=== PATIENT | female | born 1955 | race African-American/Black ===

== ENCOUNTER 2017-09-19 18:53 | Inpatient (IN) ==
[2017-09-19] MEDS ORDERED: ALBUTEROL/IPRATROPIUM 3 ML NEB RESP TX STA (19:21)
[2017-09-19] MEDS ORDERED: methylPREDNISolone SOD SUC 125 MG/2 ML VIAL IV STA (19:21)
[2017-09-19] MEDS ORDERED: LEVOFLOXACIN INJ 750 MG in PREMIX 1 EACH IV STA (19:21)
[2017-09-19] MEDS ORDERED: ONDANSETRON 4 MG/2 ML VIAL IV STA (19:21)
[2017-09-19] MEDS ORDERED: KETOROLAC 30 MG/1 ML VIAL IV STA (19:24)
[2017-09-19] MEDS ORDERED: methylPREDNISolone SOD SUC 125 MG/2 ML VIAL ONE (19:57)
[2017-09-19] MEDS ORDERED: KETOROLAC 30 MG/1 ML VIAL ONE (19:57)
[2017-09-19] MEDS ORDERED: LEVOFLOXACIN INJ 150 ML IV ONE (19:57)
[2017-09-19] MEDS ORDERED: ONDANSETRON 4 MG/2 ML VIAL ONE (19:57)
[2017-09-19 20:06] LABS: Basophils % 0.2 % (0.0-0.8); Hematocrit 36.6 VOL% (35.7-47.0); Hemoglobin 11.9 GM/DL (12.0-16.0); Immature Granulocytes % 0.7 %; Immature Granulocytes Absolute 0.04 #; Lymphocytes # 1.3 10*3/uL (1.4-4.0); Lymphocytes % 21.9 % (21.3-54.2); Mean Corpuscular HGB Conc 32.5 GM/DL (32-36); Mean Corpuscular Hemoglobin 28 PG (27-34); Mean Corpuscular Volume 86.9 FL (87-102); Mean Platelet Volume 11.3 FL (9.6-12.0); Monocytes # 0.5 10*3/uL (0.11-0.8); Monocytes % 8.1 % (1.7-12.7); Neutrophils # 4.2 10*3/uL (1.4-7.4); Neutrophils % 69.1 % (38.7-73.9); Platelet Count 164 T/CUMM (130-400); Red Blood Count 4.21 MC/CUMM (3.8-5.5); Red Cell Distribution Width 15.1 % (9.3-17.3)
[2017-09-19] MEDS: TERBUTALINE 1 MG/1 ML VIAL SUBCUT SCH ×2 (20:10→21:08)
[2017-09-19 20:17] LABS: PT Patient Result 10.3 SECS; Partial Thromboplastin Time 29.8 SECS (0-40)
[2017-09-19 20:43] LABS: Alanine Aminotransferase 41 U/L (13-56); Albumin 3.2 G/DL (3.4-5.0); Alkaline Phosphatase 69 U/L (45-117); Aspartate Amino Transferase 61 U/L (0-37); Blood Urea Nitrogen 17 MG/DL (7-18); Calcium 8.6 MG/DL (8.5-10.1); Glucose 153 MG/DL (74-106); Osmolality,Calculated 274.1 MOS/KG (273-304); Potassium 4.7 MMOL/L (3.5-5.1); Sodium 135 MMOL/L (136-145); Total Protein 6.7 G/DL (6.4-8.3); Troponin I Only < 0.015 NG/ML (0.00-0.045)
[2017-09-19] MEDS ORDERED: SODIUM CHLORIDE 0.9% 1,000 ML IV STA (20:58)
[2017-09-19] MEDS ORDERED: TERBUTALINE 1 MG/1 ML VIAL SUBCUT ONE (21:07)
[2017-09-19] MEDS ORDERED: METFORMIN HCL PO SCH (22:15)
[2017-09-19] MEDS ORDERED: [UNRECOGNIZED DRUG - OTHER] PO SCH (22:15)
[2017-09-19] MEDS ORDERED: GLIPIZIDE PO SCH (22:15)
[2017-09-19] MEDS ORDERED: ONDANSETRON 4 MG/2 ML VIAL IV PRN (22:31)
[2017-09-19] MEDS ORDERED: DEXTROSE 50% 25 GM/50 ML VIAL IV PRN (22:31)
[2017-09-19] MEDS ORDERED: GLUCAGON 1 MG VIAL IM PRN (22:31)
[2017-09-19] MEDS ORDERED: ACETAMINOPHEN 325 MG TABLET PO PRN (22:31)
[2017-09-20] MEDS: ALBUTEROL/IPRATROPIUM 3 ML NEB RESP TX SCH ×4 (01:20→19:32)
[2017-09-20] MEDS: SODIUM CHLORIDE 0.9% 1,000 ML IV SCH ×2 (01:25→20:12)
[2017-09-20] MEDS: TERBUTALINE 1 MG/1 ML VIAL SUBCUT SCH ×2 (03:13→03:14)
[2017-09-20 04:57] LABS: Basophils % 0.3 % (0.0-0.8); Hematocrit 34.6 VOL% (35.7-47.0); Hemoglobin 11.1 GM/DL (12.0-16.0); Immature Granulocytes Absolute 0.04 #; Lymphocytes # 0.6 10*3/uL (1.4-4.0); Mean Corpuscular HGB Conc 32.1 GM/DL (32-36); Mean Corpuscular Hemoglobin 28 PG (27-34); Mean Corpuscular Volume 87.6 FL (87-102); Mean Platelet Volume 11.5 FL (9.6-12.0); Monocytes # 0.1 10*3/uL (0.11-0.8); Monocytes % 3.4 % (1.7-12.7); Neutrophils # 3.1 10*3/uL (1.4-7.4); Neutrophils % 80.3 % (38.7-73.9); Platelet Count 146 T/CUMM (130-400); Red Blood Count 3.95 MC/CUMM (3.8-5.5); Red Cell Distribution Width 15.2 % (9.3-17.3); White Blood Count 3.9 T/CUMM (4-12)
[2017-09-20 05:15] LABS: Osmolality,Calculated 284.4 MOS/KG (273-304); Potassium 4.6 MMOL/L (3.5-5.1)
[2017-09-20 05:37] LABS: Band Neutrophils 1 % (0-10); Lymphocytes 16 % (20-55); Segmented Neutrophils 80 % (50-85); Total Cells Counted 100
[2017-09-20 05:38] LABS: Platelet Estimate Normal
[2017-09-20 07:14] LABS: Allen Test Positive
[2017-09-20 07:17] LABS: ABG Base Excess -6.6 MMOL/L (-2.5-2.5); ABG HCO3 17.8 MMOL/L (20-26); ABG PCO2 32.8 MM HG (35-48); ABG PH 7.352 (7.35-7.45); ABG PO2 144.3 MM HG (80-95); ABG TCO2 18.8 MMOL/L (23-27)
[2017-09-20 07:18] LABS: ABG Oxygen Saturation 98.8 % (95-100)
[2017-09-20] MEDS ORDERED: INSULIN LISPRO 100 UNIT/ML SUBCUT SCH (07:30)
[2017-09-20 07:36] LABS: Apearance,Urine Slightly Hazy (Clear); Bilirubin,Urine Negative (Negative); Blood, Urine Negative (Negative); Glucose,Urine (UA) >=500 mg/dL (Negative); Hyaline Casts,Urine 4 /LPF (0-3); Ketones,Urine 5 mg/dL (Negative); Mucus,Urine Occasional /LPF (Occasional); Nitrite,Urine Negative (Negative); Protein,Urine Negative; Squamous Epithelial Cell,Urine Occasional /HPF (0-10); Urine Color Yellow (Yellow); Urine Specific Gravity 1.003 (1.001-1.035); Urine Urobilinogen < 2.0 EU/DL (0.2-1.0); WBC,Urine 1 /HPF (0-6)
[2017-09-20 07:58] LABS: Barbiturates Screen,Urine Negative (Negative); Benzodiazepines Screen,Urine Negative (Negative); Cannabinoid Screen,Urine Negative (Negative); Opiate Screen,Urine Negative (Negative); Phencyclidine Screen,Urine Negative (Negative)
[2017-09-20] MEDS ORDERED: MEROPENEM 1,000 MG in SODIUM CHLORIDE 0.9% 50 ML IV SCH (08:00)
[2017-09-20] MEDS ORDERED: OLMESARTAN MED PO SCH (09:00)
[2017-09-20] MEDS ORDERED: [UNRECOGNIZED DRUG - OTHER] PO SCH (09:00)
[2017-09-20] MEDS ORDERED: OSELTAMIVIR 75 MG CAPSULE PO SCH (09:00)
[2017-09-20] MEDS ORDERED: AMLODIPINE BES PO SCH (09:00)
[2017-09-20] MEDS: glyBURIDE 5 MG TABLET PO SCH ×2 (09:24→19:37)
[2017-09-20] MEDS: INSULIN LISPRO 100 UNIT/ML SUBCUT SCH ×4 (09:25→19:51)
[2017-09-20] MEDS: PANTOPRAZOLE 40 MG TABLET PO SCH (09:38)
[2017-09-20] MEDS: ENOXAPARIN 30 MG/0.3 ML SYRINGE SUBCUT SCH (09:38)
[2017-09-20] MEDS: SODIUM BICARB INJ 50 MEQ in DEXTROSE 5% NACL 0.45% 1,000 ML IV SCH ×2 (10:49→20:11)
[2017-09-20] MEDS ORDERED: SODIUM BICARB INJ 50 MEQ in SODIUM CHLORIDE 0.9% 1,000 ML IV SCH (20:30)
[2017-09-20] MEDS: PRAVASTATIN 40 MG TABLET PO SCH (20:35)
[2017-09-20] MEDS: LEVOFLOXACIN INJ 750 MG in PREMIX 1 EACH IV SCH (20:36)
[2017-09-20] MEDS: ZALEPLON 5 MG CAPSULE PO SCH (20:36)
[2017-09-21] MEDS: INSULIN LISPRO 100 UNIT/ML SUBCUT SCH ×6 (00:21→21:04)
[2017-09-21] MEDS: SODIUM BICARB INJ 50 MEQ in SODIUM CHLORIDE 0.45% 1,000 ML IV SCH ×2 (00:22→13:18)
[2017-09-21] MEDS: ALBUTEROL/IPRATROPIUM 3 ML NEB RESP TX SCH ×4 (00:26→20:26)
[2017-09-21 07:12] LABS: Alanine Aminotransferase 31 U/L (13-56); Albumin 2.5 G/DL (3.4-5.0); Alkaline Phosphatase 55 U/L (45-117); Aspartate Amino Transferase 40 U/L (0-37); Blood Urea Nitrogen 19 MG/DL (7-18); Calcium 8.1 MG/DL (8.5-10.1); Glucose 272 MG/DL (74-106); Magnesium 1.8 MG/DL (1.8-2.4); Osmolality,Calculated 286.7 MOS/KG (273-304); Sodium 138 MMOL/L (136-145); Troponin I Only < 0.015 NG/ML (0.00-0.045)
[2017-09-21 07:49] LABS: Basophils % 0.1 % (0.0-0.8); Hematocrit 33.7 VOL% (35.7-47.0); Immature Granulocytes % 1.7 %; Immature Granulocytes Absolute 0.16 #; Lymphocytes # 1.4 10*3/uL (1.4-4.0); Lymphocytes % 14.9 % (21.3-54.2); Mean Corpuscular HGB Conc 32.6 GM/DL (32-36); Mean Corpuscular Hemoglobin 28 PG (27-34); Mean Corpuscular Volume 87.1 FL (87-102); Mean Platelet Volume 11.5 FL (9.6-12.0); Monocytes # 0.7 10*3/uL (0.11-0.8); Neutrophils % 75.3 % (38.7-73.9); Platelet Count 164 T/CUMM (130-400); Red Blood Count 3.87 MC/CUMM (3.8-5.5); Red Cell Distribution Width 15.6 % (9.3-17.3); White Blood Count 9.3 T/CUMM (4-12)
[2017-09-21 07:57] LABS: PT Patient Result 10.8 SECS
[2017-09-21 08:10] LABS: Band Neutrophils 2 % (0-10); Giant Platelets Few; Hypochromasia 1+; Lymphocytes 12 % (20-55); Ovalocytes Slight; Platelet Estimate Normal; Segmented Neutrophils 74 % (50-85); Total Cells Counted 100
[2017-09-21] MEDS: glyBURIDE 5 MG TABLET PO SCH ×2 (09:41→17:46)
[2017-09-21] MEDS: PANTOPRAZOLE 40 MG TABLET PO SCH (09:41)
[2017-09-21] MEDS: ENOXAPARIN 30 MG/0.3 ML SYRINGE SUBCUT SCH (09:42)
[2017-09-21 10:17] LABS: Lactic Acid 2.8 MMOL/L (0.4-2.0)
[2017-09-21] MEDS: VANCOMYCIN INJ 1,750 MG in SODIUM CHLORIDE 0.9% 500 ML IV SCH (13:18)
[2017-09-21] MEDS: ALUMINUM/MAGNES/SIMETH MAX STR 30 ML UDCUP PO PRN ×2 (16:45→23:03)
[2017-09-21] MEDS: LEVOFLOXACIN INJ 750 MG in PREMIX 1 EACH IV SCH (21:03)
[2017-09-21] MEDS: ZALEPLON 5 MG CAPSULE PO SCH (21:03)
[2017-09-21] MEDS: PRAVASTATIN 40 MG TABLET PO SCH (21:03)
[2017-09-22] MEDS: INSULIN LISPRO 100 UNIT/ML SUBCUT SCH ×3 (00:05→09:48)
[2017-09-22] MEDS: ALBUTEROL/IPRATROPIUM 3 ML NEB RESP TX SCH ×2 (00:23→07:31)
[2017-09-22] MEDS: VANCOMYCIN INJ 1,750 MG in SODIUM CHLORIDE 0.9% 500 ML IV SCH (00:34)
[2017-09-22 06:12] LABS: Basophils % 0.1 % (0.0-0.8); Eosinophils % 0.1 % (0.00-10.9); Hematocrit 33.4 VOL% (35.7-47.0); Hemoglobin 10.9 GM/DL (12.0-16.0); Immature Granulocytes Absolute 0.22 #; Lymphocytes # 2.3 10*3/uL (1.4-4.0); Mean Corpuscular HGB Conc 32.6 GM/DL (32-36); Mean Corpuscular Hemoglobin 28 PG (27-34); Mean Platelet Volume 11.2 FL (9.6-12.0); Monocytes # 0.5 10*3/uL (0.11-0.8); Monocytes % 6.8 % (1.7-12.7); Neutrophils # 4.2 10*3/uL (1.4-7.4); Platelet Count 174 T/CUMM (130-400); Red Blood Count 3.84 MC/CUMM (3.8-5.5); Red Cell Distribution Width 15.3 % (9.3-17.3); White Blood Count 7.3 T/CUMM (4-12)
[2017-09-22 06:37] LABS: Calcium 8.2 MG/DL (8.5-10.1); Magnesium 1.7 MG/DL (1.8-2.4); Osmolality,Calculated 286.1 MOS/KG (273-304); Potassium 4.4 MMOL/L (3.5-5.1)
[2017-09-22 08:30] VITALS: BP 158/85
[2017-09-22] MEDS: SODIUM BICARB INJ 50 MEQ in SODIUM CHLORIDE 0.45% 1,000 ML IV SCH (09:20)
[2017-09-22] MEDS: glyBURIDE 5 MG TABLET PO SCH (09:46)
[2017-09-22] MEDS: ENOXAPARIN 30 MG/0.3 ML SYRINGE SUBCUT SCH (09:46)
[2017-09-22] MEDS: PANTOPRAZOLE 40 MG TABLET PO SCH (09:47)
== END 2017-09-22 11:18 | disposition home or self-care (01) | DRG 682 ==
LOC: N.ED 18:53 → N.EDINP 23:16 → N.CC 09-20 00:42 → N.5E 09-21 10:50
PROVIDERS: ADMIT Internal Medicine; ATTEND Internal Medicine